=== PATIENT | female | born 1985 | race Hispanic/Latino ===

== ENCOUNTER 2025-05-23 06:56 | Day surgery (SDC) | payer MEDICAID, SELFPAY ==
[2025-05-22 14:00] LABS: IMMATURE GRANULOCYTE ABSOLUTE 0.02 K/uL (0-1); NUCLEATED RED BLOOD CELLS 0.0 % (0.0-0.19); PLATELET COUNT (AUTO) 400 K/uL (130-400); RED BLOOD CELL COUNT(AUTO) 4.54 MIL/uL (4.00-5.50); RED CELL DISTRIBUTION WIDTH 13.1 % (11.0-15.5); WHITE BLOOD COUNT (AUTO) 8.5 K/uL (4.8-10.8)
[2025-05-22 14:08] LABS: CREATININE 0.7 mg/dL (0.5-1.0); GLOMERULAR FILTR. RATE CALC 112.0 mL/min (>90); GLUCOSE,RANDOM 98.0 mg/dL (70-105); SODIUM SERUM 138.0 mmol/L (136-145); UREA NITROGEN, BLOOD 16.0 mg/dL (7-18)
[2025-05-22 14:09] VITALS: BP 100/67; PULSE 78; RESP 15; TEMP 98.6
[2025-05-22 14:10] LABS: INR 0.99 (0.85-1.15)
[2025-05-23] VITALS (16 sets, daily range): BP systolic 88–140; BP diastolic 50–83; PULSE 68–110; RESP 13–23; TEMP 97.7–98.2
[~2025-05-23] VITALS: Ht 152.4 cm; Wt 65.8 kg
[~2025-05-23 06:56] MED LIST: HYDR-4064 PO; IBUP-2077 PO; METH-812 PO
[2025-05-23] MEDS ORDERED: LACTATED RINGERS 1000ML 1,000 ML IV ONE (07:10)
[2025-05-23] MEDS ORDERED: MIDAZOLAM HCL 1 MG/ML 2ML VIAL ONE ×2 (08:12→09:05)
[2025-05-23] MEDS ORDERED: LIDOCAINE PF 100MG/5ML (2%) SYRINGE 5ML ONE (09:03)
[2025-05-23] MEDS ORDERED: NEOSTIGMINE METHYLSULFATE 1MG/ML IV ONE (11:14)
[2025-05-23] MEDS ORDERED: GLYCOPYRROLATE 0.2 MG/ML 5 ML VIAL ONE (11:14)
[2025-05-23] MEDS: MIDAZOLAM HCL 1 MG/ML 2ML VIAL ONE (12:07)
--- NOTE | 2025-05-23 14:15 | NUR ---
PT TAKEN OUT VIA WHEELCHAIR AFTER PT DID CRUTCH TRAINING FAMILY DRIVING
--- NOTE | 2025-05-23 14:37 | NUR ---
Patient refused to perform crutch training due to LLE being too numb. She was educated that she will be NWB on LLE. Reports she's been using the crutches for the past 5 weeks, "I know how to use them." Pt was able to stand pivot to W/C at A. Nursing present
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
== END 2025-05-23 14:15 | disposition home or self-care (01) ==
LOC: DAH 06:56
PROVIDERS: ATTEND Student in an Organized Health Care Education/Training Program
DX: S82.62XA Displaced fracture of lateral malleolus of left fibula, initial encounter for closed fracture (principal); S93.432A Sprain of tibiofibular ligament of left ankle, initial encounter; V86.79XA Person on outside of other special all-terrain or other off-road motor vehicles injured in nontraffic accident, initial encounter; Y93.89 Activity, other specified; Y92.89 Other specified places as the place of occurrence of the external cause; Y99.8 Other external cause status; Z79.01 Long term (current) use of anticoagulants
CPT/HCPCS: 80048; 84703; 85025; 85610; 85730; 36415; 27829; 27792; 64447; 73610; J1885; C1713 ×8; A4663; J7120 ×2; A4649 ×2; J3010 ×2; J2270; J3490 ×2; J2003; J2250 ×3; J2704 ×3; J2710; J2795; J0690 ×2; A4930; A5120; A4215 ×2; A4213; A4222; A4221; A4216; A4223 ×2